=== PATIENT | male | born 1950 | race Two or more races ===

== ENCOUNTER 2021-05-11 10:15 | Inpatient (IN) | payer OTHER ==
[~2021-05-11] VITALS: Ht 172.7 cm; Wt 92.5 kg
[2021-05-11] MEDS ORDERED: DIOVAN HCT 1601 EACH PO (14:18)
[2021-05-11] MEDS ORDERED: LIPITOR40 MG PO (14:19)
[2021-05-14] MEDS ORDERED: CIPROFLOXACIN500 MG (16:48)
[2021-05-14] MEDS ORDERED: FAMOTIDINE20 MG (16:48)
[2021-05-14] MEDS ORDERED: FOLIC ACID1 MG (16:48)
[2021-05-14] MEDS ORDERED: PANTOPRAZOLE SO40 MG (16:48)
[2021-05-14] MEDS ORDERED: TAMSULOSIN HCL0.4 MG (16:48)
[2021-05-14] MEDS ORDERED: SUPREP BOWEL P354 ML (16:49)
[2021-05-14] MEDS ORDERED: METRONIDAZOLE500 MG (16:49)
[2021-05-17] MEDS ORDERED: ULTRACET PO (11:41)
[2021-05-17] MEDS ORDERED: PRILOSEC OTC20 MG PO (11:41)
== END 2021-05-17 13:46 | disposition home or self-care (01) | DRG 334 ==
LOC: SURH 05-14 07:00 → O/R 05-14 08:45 → SURH 05-14 10:15 → SURG 05-14 18:19
PROVIDERS: ADMIT Surgery; ATTEND Surgery
PROC: 0DJD8ZZ Inspection of Lower Intestinal Tract, Via Natural or Artificial Opening Endoscopic (ICD-10-PCS; 2021-05-14)
PROC: 3E0F7SF Introduction of Other Gas into Respiratory Tract, Via Natural or Artificial Opening (ICD-10-PCS; 2021-05-14)
PROC: 0DTP0ZZ Resection of Rectum, Open Approach (ICD-10-PCS; principal; 2021-05-14 07:00)
DX: K57.20 Diverticulitis of large intestine with perforation and abscess without bleeding (principal); D12.5 Benign neoplasm of sigmoid colon; Z20.822 Contact with and (suspected) exposure to COVID-19